=== PATIENT | male | born 1970 | race American Indian/Alaskan Native ===

== ENCOUNTER 2020-07-25 22:23 | Emergency (ER) | payer OTHER ==
[2020-07-25] MEDS ORDERED: METOCLOPRAMIDE 10 MG TAB PO ONE (22:52)
[2020-07-25] MEDS ORDERED: diphenhydrAMINE 25 MG CAP PO ONE (22:52)
[2020-07-25] MEDS ORDERED: dexAMETHasone 20 MG/5 ML VIAL IM ONE (22:52)
[2020-07-25 22:54] VITALS: BP 157/92
[2020-07-25] MEDS ORDERED: IBUPROFEN 800 MG TAB PO ONE (23:13)
--- NOTE | 2020-07-25 23:57 | Emergency Department Report ---
ED General Adult HPI - General Chief complaint: Allergic Reaction Stated complaint: ALLERGIC REACTION/SWOLLEN JAW Source: patient Mode of arrival: Ambulatory Limitations: No Limitations - History of Present Illness Initial comments: Patient is a 49-year-old -[place] male with a history of hyperlipidemia and hypertension who presents to the ED with complaint of acute onset swelling, painful right mandible with pressure on anterior right cervical lymph nodes for the last 2 hours after eating a mixed fruits and yogurt about 3 hours ago. Patient states that he has never had any allergy to any fluids but this swelling and pain in the right mandible and lymph surprised him and he thought that he may be coming down with acute allergic reaction to some of the fluids and the mixture. Patient denies swollen lips or tongue, dysphagia, dysphonia, hoarseness, nasal and sinus congestion, change in vision, cough, chest tightness, wheezing, shortness of breath, abdominal pain, nausea and vomiting or diarrhea and itchy rashes. MD Complaint: Swollen painful right mandible, tightness -: Sudden, hour(s) (2) Location: face Radiation: non-radiation Severity scale (0 -10): 4 Quality: aching, sharp Consistency: constant Improves with: none Worsens with: none Associated Symptoms: denies other symptoms. denies: confusion, chest pain, cough, diaphoresis, fever/chills, headaches, loss of appetite, malaise, nausea/vomiting, rash, seizure, shortness of breath, syncope, weakness Treatments Prior to Arrival: none - Related Data Previous Rx's Medication Instructions Recorded Last Taken Type Amoxicillin/Potassium Clav 1 each PO Q12H #20 tablet 07/26/20 Unknown Rx [Augmentin 875-125 Tablet] Ibuprofen [Motrin] 800 mg PO Q8HR PRN #30 tablet 07/26/20 Unknown Rx diphenhydrAMINE [Benadryl CAP] 25 mg PO Q6HR PRN #30 capsule 07/26/20 Unknown Rx predniSONE [Deltasone] 40 mg PO QDAY #10 tab 07/26/20 Unknown Rx Allergies Allergy/AdvReac Type Severity Reaction Status Date / Time No Known Allergies Allergy Unverified 07/25/20 23:01 ED Review of Systems ROS: Stated complaint: ALLERGIC REACTION/SWOLLEN JAW Other details as noted in HPI Constitutional: denies: chills, fever Eyes: denies: eye pain, eye discharge, vision change ENT: other (Swollen, mildly painful right mandible and cervical lymph nodes). denies: ear pain, throat pain Respiratory: denies: cough, shortness of breath, wheezing Cardiovascular: denies: chest pain, palpitations Endocrine: no symptoms reported Gastrointestinal: denies: abdominal pain, nausea, diarrhea Genitourinary: denies: urgency, dysuria Musculoskeletal: denies: back pain, joint swelling, arthralgia Skin: denies: rash, lesions Neurological: denies: headache, weakness, paresthesias Psychiatric: denies: anxiety, depression Hematological/Lymphatic: denies: easy bleeding, easy bruising ED Past Medical Hx - Past Medical History Previous Medical History?: Yes Hx Hypertension: Yes Additional medical history: High Cholesterol - Surgical History Past Surgical History?: No - Social History Smoking Status: Current Every Day Smoker Substance Use Type: None - Medications Home Medications: Home Medications Medication Instructions Recorded Confirmed Last Taken Type Amoxicillin/Potassium Clav 1 each PO Q12H #20 tablet 07/26/20 Unknown Rx [Augmentin 875-125 Tablet] Ibuprofen [Motrin] 800 mg PO Q8HR PRN #30 tablet 07/26/20 Unknown Rx diphenhydrAMINE [Benadryl CAP] 25 mg PO Q6HR PRN #30 capsule 07/26/20 Unknown Rx predniSONE [Deltasone] 40 mg PO QDAY #10 tab 07/26/20 Unknown Rx ED Physical Exam - General Limitations: No Limitations General appearance: alert, in no apparent distress - Head Head exam: Present: atraumatic, normocephalic, normal inspection - Eye Eye exam: Present: normal appearance, PERRL, EOMI - ENT ENT exam: Present: normal exam, normal orophraynx, mucous membranes moist, TM's normal bilaterally, normal external ear exam, other (Swollen right mandible with mild tenderness) - Neck Neck exam: Present: normal inspection, full ROM, lymphadenopathy (Palpable tenderness of anterior right cervical lymph nodes with mild swelling) - Respiratory Respiratory exam: Present: normal lung sounds bilaterally. Absent: respiratory distress, wheezes, rales, rhonchi, chest wall tenderness, accessory muscle use, decreased breath sounds, prolonged expiratory - Cardiovascular Cardiovascular Exam: Present: normal rhythm, tachycardia, normal heart sounds. Absent: systolic murmur, diastolic murmur, rubs, gallop - GI/Abdominal GI/Abdominal exam: Present: soft, normal bowel sounds. Absent: tenderness, guarding, rebound, hyperactive bowel sounds, hypoactive bowel sounds, organomegaly - Extremities Exam Extremities exam: Present: normal inspection, full ROM, normal capillary refill - Back Exam Back exam: Present: normal inspection, full ROM. Absent: tenderness, CVA tenderness (R), muscle spasm, paraspinal tenderness, vertebral tenderness - Neurological Exam Neurological exam: Present: alert, oriented X3, CN II-XII intact, normal gait, reflexes normal - Psychiatric Psychiatric exam: Present: normal affect, normal mood - Skin Skin exam: Present: warm, dry, intact, normal color. Absent: rash ED Course Vital Signs 07/25/20 22:48 Temperature 98.4 F Pulse Rate 102 H Respiratory 18 Rate Blood Pressure 157/92 O2 Sat by Pulse 97 Oximetry ED Medical Decision Making - Medical Decision Making This is a 49-year-old -[place] male with a history of hyperlipidemia and hypertension who presents to the ED with complaint of acute onset swelling, painful right mandible with pressure on anterior right cervical lymph nodes for the last 2 hours after eating a mixed fruits and yogurt about 3 hours ago. Jesus pacheco states that he has never had any allergy to any fluids but this swelling and pain in the right mandible and lymph surprised him and he thought that he may be coming down with acute allergic reaction to some of the fluids and the mixture. In the ED, patient is alert and oriented x3 and is not in distress. Patient was treated in the ED for suspected acute allergic reaction and also given pain medications in the ED. Based on the history and physical exam findings, the patient is unlikely to be having acute allergic reaction as the physical exam is unremarkable especially in the ENT. Patient also has not exhibited any rashes or itching. The physical exam findings are likely due to cervical lymphadenopathy diffusely on the right anterior cervical area as well as on the preauricular and postauricular lymph nodes. On reevaluation, patient's pain is well controlled medications, swelling has also improved significantly and the patient felt better. Patient was discharged home on med ications and advised to follow-up with his primary care physician in 5 to 7 days for reevaluation or return to the ED immediately if symptoms get worse. - Differential Diagnosis Lymphadenopathy; dental abscess; gingivitis; allergic reaction; Critical care attestation.: If time is entered above; I have spent that time in minutes in the direct care of this critically ill patient, excluding procedure time. ED Disposition Clinical Impression: Reactive cervical lymphadenopathy, Jaw pain, non-TMJ Acute allergic reaction Qualifiers: Encounter type: initial encounter Qualified Code(s): T78.40XA - Allergy, unspecified, initial encounter Disposition: TO HOME OR SELFCARE Is pt being admited?: No Does the pt Need Aspirin: No Condition: Stable Instructions: Allergies, Adult, [id number], Lymphadenopathy Additional Instructions: Take medication with food, drink plenty of fluids and follow-up with your primary care physician in 5 to 7 days for reevaluation. Return to the ED immediately if symptoms get worse. Prescriptions: Amoxicillin/Potassium Clav [Augmentin 875-125 Tablet] 1 each PO Q12H #20 tablet diphenhydrAMINE [Benadryl CAP] 25 mg PO Q6HR PRN #30 capsule PRN Reason: Allergy Symptoms predniSONE [Deltasone] 40 mg PO QDAY #10 tab Ibuprofen [Motrin] 800 mg PO Q8HR PRN #30 tablet PRN Reason: Pain , Severe (7-10) Referrals: [facility] [Provider Group] - 3-5 Days Time of Disposition: 00:04 Print Language: LATVIAN
== END 2020-07-25 23:00 | disposition home or self-care (01) ==
LOC: ED 22:23
DX: T78.40XA Allergy, unspecified, initial encounter (principal); R59.0 Localized enlarged lymph nodes; R68.84 Jaw pain; I10 Essential (primary) hypertension; F17.200 Nicotine dependence, unspecified, uncomplicated; Z79.1 Long term (current) use of non-steroidal anti-inflammatories (NSAID); Z79.2 Long term (current) use of antibiotics; Z79.899 Other long term (current) drug therapy; X58.XXXA Exposure to other specified factors, initial encounter
CPT/HCPCS: 96372; 99282; J1100